=== PATIENT | female | born 1970 | race Caucasian/White ===

== ENCOUNTER 2023-06-08 12:04 | Emergency (ER) | payer MEDICAID, OTHER ==
[~2023-06-08] VITALS: Ht 149.9 cm; Wt 73.0 kg
[~2023-06-08 12:04] MED LIST: AMOX-494 MT; IBUP-2029 MT
[2023-06-08 12:23] VITALS: O2SAT 98
[2023-06-08] MEDS: KETOROLAC 15MG/ML VIAL IM ONE (12:46)
[2023-06-08] MEDS ORDERED: LIDO700A15 TP (13:20)
[2023-06-08] MEDS ORDERED: NAPR-1176 MT (13:20)
[2023-06-08] MEDS ORDERED: TOPUD MT (13:59)
[2023-06-08 14:03] VITALS: BP 131/68; PULSE 63; RESP 18; TEMP 97.8
== END 2023-06-08 14:05 | disposition home or self-care (01) ==
LOC: ER 13:48
DX: M25.562 Pain in left knee (principal); E78.00 Pure hypercholesterolemia, unspecified; E11.9 Type 2 diabetes mellitus without complications; Z98.890 Other specified postprocedural states; Z90.49 Acquired absence of other specified parts of digestive tract
CPT/HCPCS: 81025; 73564; 96372; 99283; Z7610

== ENCOUNTER 2023-10-04 00:56 | Emergency (ER) | payer MEDICAID ==
[~2023-10-04] VITALS: Ht 152.4 cm; Wt 73.0 kg
[~2023-10-04 00:56] MED LIST changes: +LIDO700A15 TP; +TOPUD MT
[2023-10-04 01:18] VITALS: O2SAT 99
[2023-10-04] MEDS: OXYCODONE HCL/ACETAMINOPHEN 5/325MG TABLET PO ONE (02:30)
[2023-10-04] MEDS ORDERED: HYDR-4001 MT (04:03)
[2023-10-04] MEDS: MORPHINE SULFATE 4 MG/ML INJ (FOR IV/IM USE) IM ONE (04:40)
[2023-10-04 04:41] VITALS: BP 150/73; PULSE 73; RESP 18; TEMP 98
== END 2023-10-04 04:54 ==
LOC: ER 01:05
DX: G89.18 Other acute postprocedural pain (principal); M25.562 Pain in left knee; Z90.710 Acquired absence of both cervix and uterus
CPT/HCPCS: 99283; 73560; 96372; J2270